=== PATIENT | male | born 1985 | race African-American/Black ===

== ENCOUNTER → 2020-12-01 | Outpatient (CLI) | payer SELFPAY ==
[~2020-12-01] MED LIST: COVID-19 VACCINE (PFIZER)/PF 30 MCG/0.3 ML VIAL IM ONE; EPINEPHRINE INJ/PF 1 MG/1 ML AMPULE IM PRN
== END ==
LOC: EMPHEALTH 15:25
PROVIDERS: ATTEND Internal Medicine
DX: Z23 Encounter for immunization (principal)
CPT/HCPCS: 91300

== ENCOUNTER 2020-12-03 22:08 | Emergency (ER) | payer OTHER ==
[2020-12-03] MEDS ORDERED: HYDROCODONE/ACETAMINOPHEN 5-325 MG TABLET PO ONE (23:21)
--- NOTE | 2020-12-03 23:22 | ER Document Report ---
ED Medical Screen (RME) - General Stated Complaint: RIGHT FLANK PAIN Time Seen by Provider: 12/03/20 23:15 Notes: Patient presents complaining of right lateral side pain that started around 7 PM. Patient denies any fever, nausea vomiting or diarrhea. Patient denies any urinary symptoms. I have greeted and performed a rapid initial assessment of this patient. A comprehensive ED assessment and evaluation of the patient, analysis of test results and completion of the medical decision making process will be conducted by additional ED providers. Physical Exam - Vital signs Vitals: Temp Pulse Resp BP Pulse Ox 99.4 F 106 H 20 145/88 H 97 12/03/20 22:23 12/03/20 22:23 12/03/20 22:23 12/03/20 22:23 12/03/20 22:23 - Respiratory Respiratory status: No respiratory distress Chest status: Pain with deep breathing Notes: Right lateral lower chest wall tenderness - Cardiovascular Rhythm: Regular Heart sounds: S1 appreciated, S2 appreciated Course - Vital Signs Vital signs: Temp Pulse Resp BP Pulse Ox 99.4 F 106 H 20 145/88 H 97 12/03/20 22:23 12/03/20 22:23 12/03/20 22:23 12/03/20 22:23 12/03/20 22:23
--- NOTE | 2020-12-03 23:50 | RADIOLOGY REPORT (SQ) ---
EXAM: CHEST 2 VIEWS CLINICAL INDICATION: 35-year-old male with right-sided chest pain. TECHNIQUE: Two-view, PA and lateral projections of the chest were obtained. COMPARISON: None. FINDINGS: Unremarkable cardiac and mediastinal silhouette. Heart size is normal. Low lung volumes grossly clear without focal opacity, pneumothorax or pleural effusions. The visualized bones are within normal limits, of chest radiograph technique, however if there is clinical concern for bone injury, dedicated rib series or CT chest is recommended. IMPRESSION: No acute cardiopulmonary abnormalities.
--- NOTE | 2020-12-04 00:13 | RADIOLOGY REPORT (SQ) ---
EXAM DESCRIPTION: US ABDOMEN LIMITED COMPLETED DATE/TME: 12/03/2020 23:52 CLINICAL HISTORY: 35 years, Male, R lat side pain COMPARISON: None. TECHNIQUE: LIMITATIONS: None. FINDINGS: The gallbladder was contracted, limiting its evaluation. The patient was not n.p.o. for this examination. No gross evidence of gallstones. The pathology laboratory technologist reported a negative sonographic Rothman sign. The liver is hyperechogenic, compatible with fatty infiltration. No evidence of biliary tree dilatation. The right kidney is unremarkable. The pancreas was obscured by bowel gas. IMPRESSION: Fatty liver. copyright 2010 [employer]- All Rights Reserved
[2020-12-04 01:49] LABS: ABSOLUTE BASOPHILS # (AUTO) 0.2 10^3/uL (0.0-0.2); ABSOLUTE EOSINOPHILS # (AUTO) 0.2 10^3/uL (0.0-0.6); ABSOLUTE LYMPHOCYTES (AUTO) 3.3 10^3/uL (0.5-4.7); ABSOLUTE MONOCYTES (AUTO) 0.8 10^3/uL (0.1-1.4); ABSOLUTE NEUT (AUTO) 6.2 10^3/uL (1.7-8.2); BASOPHILS % (AUTO) 1.7 % (0-2); EOSINOPHILS % (AUTO) 1.6 % (0-6); HEMOGLOBIN 15.9 g/dL (13.5-17.0); MEAN CORPUSCULAR HEMOGLOBIN 31.2 pg (27.0-33.4); MEAN CORPUSCULAR HGB CONC 33.9 g/dL (32.0-36.0); MEAN CORPUSCULAR VOLUME 92 fl (80-97); MONOCYTES % (AUTO) 7.8 % (3-13); PLATELET COUNT 248 10^3/uL (150-450); RED BLOOD COUNT 5.11 10^6/uL (4.35-5.55); RED CELL DISTRIBUTION WIDTH 14.6 % (11.5-14.0); SEGMENTED NEUTROPHILS % (AUTO) 57.9 % (42-78); TOTAL CELLS COUNTED % (AUTO) 100 %; WHITE BLOOD COUNT 10.8 10^3/uL (4.0-10.5)
[2020-12-04 01:59] LABS: ALBUMIN 4.5 g/dL (3.5-5.0); ALKALINE PHOSPHATASE 82 U/L (38-126); ANION GAP 11 (5-19); ASPARTATE AMINO TRANSFERASE 94 U/L (17-59); BILIRUBIN,DIRECT 0.3 mg/dL (0.0-0.4); BILIRUBIN,TOTAL 0.4 mg/dL (0.2-1.3); BLOOD UREA NITROGEN 14 mg/dL (7-20); CARBON DIOXIDE 23 mmol/L (22-30); CHLORIDE 105 mmol/L (98-107); GLUCOSE 138 mg/dL (75-110); POTASSIUM 4.8 mmol/L (3.6-5.0); TOTAL PROTEIN 7.8 g/dL (6.3-8.2)
[2020-12-04 02:13] LABS: APPEARANCE,URINE CLEAR; BILIRUBIN,URINE NEGATIVE (NEGATIVE); COLOR,URINE YELLOW; GLUCOSE, URINE NEGATIVE (NEGATIVE); KETONES,URINE NEGATIVE (NEGATIVE); LEUKOCYTE ESTERASE,URINE NEGATIVE (NEGATIVE); NITRITE,URINE NEGATIVE (NEGATIVE); PROTEIN,URINE NEGATIVE (NEGATIVE); URINE SPECIFIC GRAVITY 1.026; UROBILINOGEN,URINE NEGATIVE mg/dL (<2.0)
--- NOTE | 2020-12-04 02:35 | ER Document Report ---
ED General - General Chief Complaint: Flank Pain Stated Complaint: RIGHT FLANK PAIN Time Seen by Provider: 12/03/20 23:15 Mode of Arrival: Ambulatory Information source: Patient Notes: 35-year-old male presents to the emergency room complaining of right-sided rib pain that started after coughing around 5 PM last night. Patient states he took Flexeril without relief and proceeded to the emergency room. He denies any nausea, vomiting, no urinary symptoms. No abdominal pain. No COVID-19 exposure TRAVEL OUTSIDE OF THE [place] IN LAST 30 DAYS: No - Related Data Allergies/Adverse Reactions: No Known Allergies Allergy (Unverified 12/03/20 23:54) Home Medications: AMLODIPINE. TRAZADONE. CHANTIX Past Medical History - General Information source: Patient - Social History Smoking Status: Current Every Day Smoker Frequency of alcohol use: Occasional Drug Abuse: None Family History: Reviewed & Not Pertinent Review of Systems - Review of Systems Constitutional: No symptoms reported EENT: No symptoms reported Cardiovascular: No symptoms reported Respiratory: No symptoms reported Gastrointestinal: No symptoms reported Genitourinary: No symptoms reported Musculoskeletal: Other - Right-sided rib pain Skin: No symptoms reported Neurological/Psychological: No symptoms reported -: Yes All other systems reviewed and negative Physical Exam - Vital signs Vitals: Temp Pulse Resp BP Pulse Ox 99.4 F 106 H 20 145/88 H 97 12/03/20 22:23 12/03/20 22:23 12/03/20 22:23 12/03/20 22:23 12/03/20 22:23 - Notes Notes: GENERAL: Mild acute distress, non-toxic appearance. HEAD: Normal with no signs of head trauma. EYES: PERRLA, EOMI, conjunctiva normal, no discharge. EARS: Hearing grossly intact. NOSE: Normal. THROAT: Oropharynx is normal. NECK: Normal range of motion, no tenderness, supple, no lymphadenopathy, No adenopathy, no JVD. CHEST: Clear breath sounds bilaterally. No wheezes, rales, or rhonchi. Nontender to palpation over the right ribs. No deformities noted. CARDIAC: Regular rate and rhythm. S1 and S2, without murmurs, gallops, or rubs. VASCULAR: No Edema. Peripheral pulses normal and equal in all extremities. ABDOMEN: Normal and soft with no tenderness, no masses or pulsatile masses. No organomegaly. Positive bowel sounds x4. No CVA tenderness noted bilaterally. GASTROINTESTINAL: Bowel sounds normal LYMPATHTIC: No lymphadenopathy noted. MUSCULOSKELETAL: Good range of motion of all major joints. Extremities without clubbing, cyanosis or edema. NEUROLOGICAL: Alert and oriented x 3. No focal sensory or strength deficits. Speech normal. Follows commands appropriately. PSYCHIATRIC: Normal Affect, judgement and mood. SKIN: Normal appearance with no rashes or lesions. Course - Re-evaluation Re-evalutation: 12/04/20 02:33 Patient is resting comfortably he is pain-free on exam. Reviewed all lab, x- ray, and ultrasound results with patient. Discussed his elevated liver enzymes with addition follow-up outpatient with primary care physician for his elevated liver enzymes. He can continue with Tylenol and or Motrin as needed for pain. Patient states he has lidocaine patches at home recommend using those as prescribed. Follow-up with a primary care physician if not improving in 2 to 3 days. Patient was given strict return to the emergency room guidelines. Return for any new or worsening symptoms. All questions were answered. Patient verbalized understanding and agrees with plan of care. - Vital Signs Vital signs: Temp Pulse Resp BP Pulse Ox 98.3 F 100 20 136/87 H 96 12/04/20 01:46 12/04/20 01:46 12/04/20 01:46 12/04/20 01:46 12/04/20 01:46 - Laboratory Results Result Diagrams: 12/04/20 01:34 12/04/20 01:34 Laboratory Results Interpreted: 12/04/20 12/04/20 12/04/20 01:34 01:34 01:34 WBC 10.8 H RDW 14.6 H Glucose 138 H AST 94 H ALT 128 H Urine Ascorbic Acid 40 H Critical Laboratory Results Reviewed: No Critical Results - Radiology Results Critical Radiology Results Reviewed: No Critical Results Discharge - Discharge Clinical Impression: Rib pain on right side, Abdominal pain of unknown etiology, Elevated liver enzymes Condition: Stable Disposition: HOME, SELF-CARE Instructions: Abdominal Pain ([facility]), Liver Function Abnormality ([facility]) Additional Instructions: Tylenol and or Motrin as needed for pain. Use the lidocaine patches as pre scribed. Follow-up with your primary care physician for your elevated liver enzymes and if not improving in 2 to 3 days. Return to the emergency room for any new or worsening symptoms.
[2020-12-04 02:41] VITALS: BP 130/92
== END 2020-12-04 02:43 | disposition home or self-care (01) ==
LOC: ER 22:08
DX: R07.81 Pleurodynia (principal); R07.89 Other chest pain; R74.8 Abnormal levels of other serum enzymes; R10.9 Unspecified abdominal pain; F17.200 Nicotine dependence, unspecified, uncomplicated
CPT/HCPCS: 36415; 71046; 76705; 80053; 81001; 83690; 85025; 99285